=== PATIENT | male | born 2005 | race Caucasian/White ===

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

== ENCOUNTER → 2023-06-30 | Outpatient (CLI) | payer BC | LOC: LAB 13:36 → RAD 13:36 | DX: S61.219A Laceration without foreign body of unspecified finger without damage to nail, initial encounter (principal); X58.XXXA Exposure to other specified factors, initial encounter ==

== ENCOUNTER → 2023-07-14 | Outpatient (CLI) | payer BC | LOC: LAB 09:25 | DX: U07.1 COVID-19 (principal) ==

== ENCOUNTER → 2023-11-08 | Outpatient (CLI) | payer BC | LOC: LAB 12:25 | DX: Z20.822 Contact with and (suspected) exposure to COVID-19 (principal) ==